=== PATIENT | female | born 1935 | race Caucasian/White ===

== ENCOUNTER 2016-11-22 11:37 | Emergency (ER) | payer MEDICARE, MEDICAID ==
[~2016-11-22] VITALS: Ht 185.4 cm; Wt 70.8 kg
[~2016-11-22 11:37] MED LIST: CLOB15CR5 TOP; DILT120T2 PO; DOCU-170 PO; DONE10TA44 PO; ESCI5TAB PO; FURO-144 PO; LACT1CAP72 PO; LORA0.5T PO; MAGN400O4 PO; MULT-659 PO; OLAN2.5T3 PO; OMEP20CA10 PO; POTA-10 PO; RIVA10TA PO; [UNRECOGNIZED DRUG - CODE] PO
--- NOTE | 2016-11-22 11:52 | NUR ---
PTREC'D TO ER VIA EMS C/O SOB HX COPD AND A FIB. O2 SATS RA 98% , N/C 2L 99% ALERT X3 . IV LEFT HAND 22G .IV STARTED 18G IVP RT AC LABS DRAWN SENT TO LAB .
[2016-11-22] MEDS ORDERED: IPRATROPIUM NEB FS 0.5 MG/2.5 ML AMPUL.NEB NEB ONE (12:00)
[2016-11-22] MEDS ORDERED: ALBUTEROL FS 2.5 MG/3 ML VIAL.NEB CONTNEB ONE (12:00)
[2016-11-22 12:05] LABS: BASOPHILS # (AUTO) 0.1 /CMM (0.0-0.2); BASOPHILS % (AUTO) 1.2 % (0.0-2.0); EOSINOPHILS # (AUTO) 0.1 /CMM (0.0-0.7); EOSINOPHILS % (AUTO) 1.3 % (0.0-6.0); HEMATOCRIT 44 % (33-45); HEMOGLOBIN 14.2 g/dL (11.5-14.8); LYMPHOCYTES # (AUTO) 1.2 /CMM (0.8-4.8); LYMPHOCYTES % (AUTO) 24.9 % (20.0-44.0); MEAN CORPUSCULAR HEMOGLOBIN 27 PG (26.0-33.0); MEAN CORPUSCULAR HGB CONC 33 g/dl (31.0-36.0); MEAN CORPUSCULAR VOLUME 84 fL (82-100); MONOCYTES # (AUTO) 0.4 /CMM (0.1-1.30); MONOCYTES % (AUTO) 8.3 % (2.0-12.0); NEUTROPHILS % (AUTO) 64.3 % (43.0-81.0); PLATELET COUNT (AUTO) 212 /CMM (150-450); RDW COEFFICIENT OF VARIATION 13.3 (11.5-15.0); RED BLOOD CELL COUNT(AUTO) 5.19 MIL/uL (4.0-5.2); WHITE BLOOD COUNT (AUTO) 4.8 K/uL (4.3-11.0)
--- NOTE | 2016-11-22 12:12 | NUR ---
URINE SAMPLE SENT TO LAB
--- NOTE | 2016-11-22 12:12 | NUR ---
paged rt for breathing tx
[2016-11-22 12:14] LABS: CALCIUM, SERUM 9.3 mg/dL (8.5-10.1); CARBON DIOXIDE 32 mmol/L (21-32); CHLORIDE 101 mmol/L (98-107); CREATININE 0.8 mg/dL (0.6-1.3); GLUCOSE 90 mg/dL (74-106); POTASSIUM 3.6 mmol/L (3.5-5.1); SODIUM SERUM 143 mmol/L (136-145); UREA NITROGEN, BLOOD 12 mg/dL (7-18)
[2016-11-22] MEDS ORDERED: ALBUTEROL FS 2.5 MG/3 ML VIAL.NEB ONE ×2 (12:14→13:32)
[2016-11-22] MEDS ORDERED: IPRATROPIUM NEB FS 0.5 MG/2.5 ML AMPUL.NEB ONE (12:15)
[2016-11-22 12:21] LABS: TROPONIN I < 0.017 ng/mL (0.00-0.056)
[2016-11-22 12:31] LABS: B-TYPE NATRIURETIC PEPTIDE 461 PG/ML (0-125)
[2016-11-22] MEDS ORDERED: DEXAMETHASONE SOD PHOSPHATE 10 MG/ML VIAL ONE (13:24)
[2016-11-22] MEDS ORDERED: DEXAMETHASONE SOD PHOSPHATE 10 MG/ML VIAL IV ONE (13:30)
[2016-11-22] MEDS ORDERED: ALBUTEROL FS 2.5 MG/3 ML VIAL.NEB NEB ONE (13:30)
--- NOTE | 2016-11-22 14:02 | NUR ---
CALLED [facility] FOR PT PICKUP ETA 20 - 30 MINS
[2016-11-22 14:03] VITALS: BP 109/55
--- NOTE | 2016-11-22 14:24 | NUR ---
PATIENT WAS PICKED UP BY FIELD NATURALIST, VSS.
== END 2016-11-22 14:24 | disposition home or self-care (01) ==
LOC: ER 11:39
DX: J44.1 Chronic obstructive pulmonary disease with (acute) exacerbation (principal); R06.02 Shortness of breath; I10 Essential (primary) hypertension; I48.91 Unspecified atrial fibrillation; K21.9 Gastro-esophageal reflux disease without esophagitis; Z99.81 Dependence on supplemental oxygen; Z87.891 Personal history of nicotine dependence
CPT/HCPCS: 36415; 71010-TC; 80048-TC; 83880; 84484-TC; 85025-TC; A4606; J1100; Z7610

== ENCOUNTER 2017-04-01 06:12 | Inpatient (IN) | payer MEDICARE, MEDICAID ==
[~2017-04-01] VITALS: Ht 170.2 cm; Wt 71.7 kg
--- NOTE | 2017-04-01 06:22 | NUR ---
PT PARK FROM FROM [facility]. PT C/O "SOB X1 WEEK"; WHEEZING. DENIES CP. PT AOX3 MILD LABORED BREATHING NOTED. NO NVD AT THIS TIME. PT GOWNED AND PLACED ON MONITOR. PT WAITING FOR MD HAMM.
[2017-04-01] MEDS ORDERED: IPRATROPIUM NEB FS 0.5 MG/2.5 ML AMPUL.NEB ONE ×2 (06:27→06:35)
[2017-04-01] MEDS ORDERED: methylPREDNISolone SOD SUCC 125 MG/2ML VIAL IV ONE (06:30)
[2017-04-01] MEDS ORDERED: IPRATROPIUM NEB FS 0.5 MG/2.5 ML AMPUL.NEB NEB ONE (06:30)
[2017-04-01] MEDS ORDERED: ALBUTEROL FS 2.5 MG/3 ML VIAL.NEB NEB ONE (06:30)
--- NOTE | 2017-04-01 06:30 | NUR ---
RT AT BEDSIDE FOR BREATHING TX
[2017-04-01] MEDS ORDERED: ALBUTEROL FS 2.5 MG/3 ML VIAL.NEB ONE (06:31)
[2017-04-01] MEDS ORDERED: methylPREDNISolone SOD SUCC 125 MG/2ML VIAL ONE (06:38)
[2017-04-01 07:01] LABS: BASOPHILS % (AUTO) 0.9 % (0.0-2.0); EOSINOPHILS # (AUTO) 0.1 /CMM (0.0-0.7); EOSINOPHILS % (AUTO) 2.1 % (0.0-6.0); HEMATOCRIT 43 % (33-45); LYMPHOCYTES # (AUTO) 1.5 /CMM (0.8-4.8); LYMPHOCYTES % (AUTO) 30.1 % (20.0-44.0); MEAN CORPUSCULAR HEMOGLOBIN 28 PG (26.0-33.0); MEAN CORPUSCULAR HGB CONC 33 g/dl (31.0-36.0); MEAN CORPUSCULAR VOLUME 86 fL (82-100); MONOCYTES # (AUTO) 0.5 /CMM (0.1-1.30); MONOCYTES % (AUTO) 10.5 % (2.0-12.0); NEUTROPHILS # (AUTO) 2.8 /CMM (1.8-8.9); NEUTROPHILS % (AUTO) 56.4 % (43.0-81.0); PLATELET COUNT (AUTO) 214 /CMM (150-450); RDW COEFFICIENT OF VARIATION 13.9 (11.5-15.0); RED BLOOD CELL COUNT(AUTO) 4.99 MIL/uL (4.0-5.2)
--- NOTE | 2017-04-01 07:09 | NUR ---
REPORT GIVEN TO JENNIFER ROTHMAN FOR DIANA.
--- NOTE | 2017-04-01 07:10 | NUR ---
RECEIVED REPORT FOR PATIENT, REMAINS STABLE. WILL CONTINUE TO MONITOR.
[2017-04-01 07:13] LABS: CALCIUM, SERUM 9.4 mg/dL (8.5-10.1); CARBON DIOXIDE 33 mmol/L (21-32); CHLORIDE 105 mmol/L (98-107); CREATININE 0.7 mg/dL (0.6-1.3); GLUCOSE 92 mg/dL (74-106); POTASSIUM 3.8 mmol/L (3.5-5.1); SODIUM SERUM 142 mmol/L (136-145); UREA NITROGEN, BLOOD 15 mg/dL (7-18)
[2017-04-01 07:18] LABS: TROPONIN I < 0.017 ng/mL (0.00-0.056)
[2017-04-01 07:26] LABS: ALANINE AMINOTRANSFERASE 11 U/L (12-78); ALBUMIN 3.7 g/dL (3.4-5.0); ALKALINE PHOSPHATASE 81 U/L (46-116); ASPARTATE AMINOTRANSFERASE 12 U/L (15-37); B-TYPE NATRIURETIC PEPTIDE 420 PG/ML (0-125); BILIRUBIN,DIRECT 0.1 mg/dL (0.0-0.2); BILIRUBIN,TOTAL 0.7 mg/dL (0.2-1.0); TOTAL PROTEIN, SERUM 7.4 g/dL (6.4-8.2)
[2017-04-01] MEDS ORDERED: ALBU18HF2 IH (07:50)
[2017-04-01] MEDS ORDERED: FLUT1BLS IH (07:50)
[2017-04-01] MEDS ORDERED: MIRT7.5T10 PO (07:50)
[2017-04-01] MEDS ORDERED: TIOT18CA3 IH (07:50)
--- NOTE | 2017-04-01 08:09 | NUR ---
325-1 Addendum: 04/01/17 at 0815 by RBATACLAN [id number]
--- NOTE | 2017-04-01 08:16 | NUR ---
REPORT GIVEN TO RNLUISANA FOR ADMISSION.
--- NOTE | 2017-04-01 08:54 | NUR ---
PATIENT TRANSPORTED TO [facility] VIA ACLS PROTOCOL FOR ADMISSION. RNERICKSON/LUISANA TO PROVIDE DIANA.
[2017-04-01 09:00] VITALS: BP 149/89
[2017-04-01 09:30] VITALS: BP 149/89
[2017-04-01] MEDS ORDERED: ACETAMINOPHEN 325 MG TABLET PO PRN (09:30)
[2017-04-01] MEDS ORDERED: LORAZEPAM 0.5 MG TABLET PO PRN (09:30)
[2017-04-01] MEDS ORDERED: ALBUTEROL FS 2.5 MG/3 ML VIAL.NEB NEB PRN (09:30)
[2017-04-01] MEDS ORDERED: ZOLPIDEM TARTRATE 5 MG TABLET PO PRN (09:30)
[2017-04-01] MEDS ORDERED: Z GUARD REMEDY 2 OZ OINT TP PRN (09:30)
[2017-04-01] MEDS ORDERED: MAG HYDROX/AL HYDROX/SIMETH 30 ML UDC PO PRN (09:30)
[2017-04-01] MEDS ORDERED: ONDANSETRON HCL/PF 4 MG/2 ML VIAL IVP PRN (09:30)
[2017-04-01] MEDS ORDERED: MAGNESIUM HYDROXIDE 30 ML UDC PO PRN ×2 (09:30)
--- NOTE | 2017-04-01 10:00 | NUR ---
SENIOR TAX ANALYST OPENING NOTES PT WAS TRANSFERRED FROM EMERGENCY ROOM. PATIENT IS ALERT AND ORIENTED. PATIENT IS IN NO APPARENT DISTRESS. PERIPHERAL IV IS INTACT AND PATENT. BEDSIDE RAILS ARE UP X2. BED IS LOCKED AND LOWERED. WILL CONTINUE TO MONITOR.
[2017-04-01] MEDS: IV NS 0.9% 1,000 ML IV PRN (11:49)
[2017-04-01] MEDS: DILTIAZEM HCL 30 MG TABLET PO SCH ×2 (11:49→21:53)
[2017-04-01] MEDS: DOCUSATE SODIUM 100 MG CAPSULE PO SCH ×2 (11:50→17:27)
[2017-04-01 12:00] VITALS: BP 132/72
[2017-04-01] MEDS: IPRATROPIUM NEB FS 0.5 MG/2.5 ML AMPUL.NEB NEB SCH ×2 (12:44→19:47)
[2017-04-01] MEDS: OLANZAPINE 2.5 MG TABLET PO SCH ×2 (13:02→17:27)
[2017-04-01] MEDS: methylPREDNISolone SOD SUCC 40 MG/ML VIAL IV SCH ×2 (13:02→17:27)
[2017-04-01 16:00] VITALS: BP 131/68
[2017-04-01] MEDS: RIVAROXABAN 10 MG TABLET PO SCH (17:34)
[2017-04-01 17:36] LABS: ABG BASE EXCESS 2.5 mmol/L; ABG OXYGEN SATURATION 92.9 % (92.0-98.5); ABG PCO2 39.5 mmHg (35.0-45.0); ABG PH 7.446 (7.350-7.450); ABG PO2 64.6 mmHg (75.0-100.0); AaDO2 37.8 mmHg; COHb 0.7 % (0.5-1.5); MetHb 0.4 % (0.0-1.5); O2Hb 91.9 % (94.0-97.0); SITE, ABG Right Radial; VENT MODE, BG ROOM AIR
--- NOTE | 2017-04-01 18:00 | NUR ---
RESPIRATORY THERAPIST DAVIS CALLED POST ARTERIAL PUNCTURE RESULT FOR BLOOD GAS REPORTING THE RESULT IS NORMAL
--- NOTE | 2017-04-01 18:52 | NUR ---
CLINICAL APPLICATION CONSULTANT CLOSING NOTES PT IS RESTING IN BED IN NO APPARENT DISTRESS. BED IS LOCKED AND LOWERED. BEDSIDE RAILS ARE UP X2. WILL ENDORSE CARE TO U.S. REPRESENTATIVE NURSE FOR DIANA.
--- NOTE | 2017-04-01 19:00 | NUR ---
SOCIAL GROUP WORKER OPENING NOTES PATIENT RESTING IN BED A/O X 2, NO ACUTE DISTRESS NOTED. BREATHING EVEN AND UNLABORED, NO SOB NOTED. SAFETY MEASURES IN PLACE, BED LOCKED AND IN LOWEST POSITION, CALL LIGHT IN REACH. WILL CONTINUE TO MONITOR.
[2017-04-01 19:34] VITALS: BP 123/68
[2017-04-01 20:00] VITALS: BP 123/68
[2017-04-01] MEDS: MIRTAZAPINE 15 MG TABLET PO SCH (21:49)
[2017-04-01] MEDS: GUAIFENESIN 300 MG/15 ML UDC PO SCH (21:49)
[2017-04-02] VITALS: BP 126/76
[2017-04-02 06:54] LABS: BASOPHILS % (AUTO) 0.1 % (0.0-2.0); EOSINOPHILS % (AUTO) 0.1 % (0.0-6.0); HEMATOCRIT 42 % (33-45); HEMOGLOBIN 13.8 g/dL (11.5-14.8); LYMPHOCYTES # (AUTO) 0.8 /CMM (0.8-4.8); LYMPHOCYTES % (AUTO) 8.4 % (20.0-44.0); MEAN CORPUSCULAR HEMOGLOBIN 28 PG (26.0-33.0); MEAN CORPUSCULAR HGB CONC 33 g/dl (31.0-36.0); MEAN CORPUSCULAR VOLUME 86 fL (82-100); MONOCYTES # (AUTO) 0.3 /CMM (0.1-1.30); MONOCYTES % (AUTO) 2.9 % (2.0-12.0); NEUTROPHILS # (AUTO) 8.6 /CMM (1.8-8.9); NEUTROPHILS % (AUTO) 88.5 % (43.0-81.0); PLATELET COUNT (AUTO) 213 /CMM (150-450); RDW COEFFICIENT OF VARIATION 13.8 (11.5-15.0); RED BLOOD CELL COUNT(AUTO) 4.96 MIL/uL (4.0-5.2); WHITE BLOOD COUNT (AUTO) 9.8 K/uL (4.3-11.0)
[2017-04-02 08:00] VITALS: BP 143/81
[2017-04-02] MEDS ORDERED: TIOTROPIUM BROMIDE 6 CAP/BOX CAP.W.DEV IH SCH (09:00)
--- NOTE | 2017-04-02 09:35 | NUR ---
RN OPENING NOTES RECEIVED PATIENT RESTING COMFORTABLE IN BED. AOX2. PT DENIES SOB AND CP. NO COMPLAINTS OF PAIN. PATIENT SATURATING AT 97% ON O2 @2LPM. RESPIRATIONS EVEN AND UNLABORED. NO ACUTE DISTRESS NOTED. PATIENT VERBALIZING HER DEPRESSION. IV ACCESS ON THE LAC 20 G WITH NS RUNNING @75 ML/HR. BED LOCKED IN THE LOWEST POSITION WITH SIDE RAILS UP X2. CALL LIGHT WITHIN REACH. WILL CONTINUE TO MONITOR, ASSESS AND EDUCATE PATIENT THROUGHOUT SHIFT.
[2017-04-02] MEDS: IPRATROPIUM NEB FS 0.5 MG/2.5 ML AMPUL.NEB NEB SCH ×3 (09:38→21:52)
[2017-04-02] MEDS: OLANZAPINE 2.5 MG TABLET PO SCH ×3 (09:54→17:40)
[2017-04-02] MEDS: FUROSEMIDE 40 MG TABLET PO SCH (09:54)
[2017-04-02] MEDS: DOCUSATE SODIUM 100 MG CAPSULE PO SCH ×2 (09:54→17:34)
[2017-04-02] MEDS: ESCITALOPRAM OXALATE (10 MG) 10 MG TABLET PO SCH (09:54)
[2017-04-02] MEDS: DILTIAZEM HCL 30 MG TABLET PO SCH ×2 (09:54→21:24)
[2017-04-02] MEDS: GUAIFENESIN 300 MG/15 ML UDC PO SCH ×2 (09:55→21:25)
[2017-04-02] MEDS: methylPREDNISolone SOD SUCC 40 MG/ML VIAL IV SCH ×3 (10:01→17:42)
[2017-04-02 10:34] LABS: CHOLESTEROL 177 mg/dL (<200); HDL CHOLESTEROL 67 mg/dL (40-60); LDL 105 mg/dL (0-99); TRIGLYCERIDES 20 mg/dL (30-150)
[2017-04-02 10:35] LABS: CALCIUM, SERUM 9.4 mg/dL (8.5-10.1); CARBON DIOXIDE 30 mmol/L (21-32); CHLORIDE 103 mmol/L (98-107); CREATININE 0.7 mg/dL (0.6-1.3); GLUCOSE 136 mg/dL (74-106); MAGNESIUM 1.9 mg/dL (1.8-2.4); PHOSPHORUS 3.1 mg/dL (2.5-4.9); POTASSIUM 3.8 mmol/L (3.5-5.1); SODIUM SERUM 141 mmol/L (136-145); UREA NITROGEN, BLOOD 17 mg/dL (7-18)
[2017-04-02] MEDS: FLUTICASONE/VILANTEROL 1 EACH BLST.W.DEV IH SCH (11:57)
[2017-04-02 12:00] VITALS: BP 138/95
--- NOTE | 2017-04-02 13:23 | NUR ---
RN NOTES PATIENT ACCIDENTLY DISLODGED LAC IV ACCESS. NEW IV PLACED ON THE RAC 20 G. ON ATTEMPT. PATIENT TOLERATED WELL. PATENT AND INTACT. NO S/S OF INFILTRATION. NS RUNNING AT 75ML/HR. WILL CONTINUE TO MONITOR.
[2017-04-02 16:00] VITALS: BP 126/84
[2017-04-02] MEDS: RIVAROXABAN 10 MG TABLET PO SCH (17:37)
--- NOTE | 2017-04-02 19:25 | NUR ---
MS/RN NOTES RECEIVED PT. LYING IN BED. AWAKE, ALERT AND ORIENTED X2. BREATHING EVEN AND UNLABORED ON ROOM AIR. NO SOB, RESPIRATORY DISTRESS OR COMPLAINTS OF PAIN NOTED AT THIS TIME. NO COMPLAINTS OF CHEST PAIN NOTED AT THIS TIME. PT. WITH RIGHT AC 20 GAUGE PERIPHERAL IV PRESENT, PATENT AND INTACT ADMINISTERING TO PT. NS @ 75 ML/HR. BED LOCKED AND IN LOWEST POSITION, SIDE RAILS UP X3, BED ALARM ON, CALL LIGHT WITHIN REACH, WILL CONTINUE TO MONITOR.
--- NOTE | 2017-04-02 19:35 | NUR ---
RN CLOSING NOTES PATIENT RESTING COMFORTABLY IN BED. DENIES SOB NO COMPLAINTS OF PAIN. NO CP. NO ACUTE DISTRESS. RESPIRATIONS EVEN AND UNLABORED. ALL NEEDS MET. ALL MEDS GIVEN APPROPRIATE. WILL ENDORSE TO NIGHT RN FOR DIANA.
[2017-04-02 20:00] VITALS: BP 147/84
[2017-04-02] MEDS: MIRTAZAPINE 15 MG TABLET PO SCH (21:25)
[2017-04-03] MEDS: IPRATROPIUM NEB FS 0.5 MG/2.5 ML AMPUL.NEB NEB SCH ×4 (02:50→20:40)
--- NOTE | 2017-04-03 06:19 | NUR ---
MS/RN NOTES PT. IS LYING IN BED. AWAKE, ALERT AND ORIENTED X2. BREATHING EVEN AND UNLABORED ON ROOM AIR. NO SOB, RESPIRATORY DISTRESS OR COMPLAINTS OF PAIN NOTED AT THIS TIME AND THROUGHOUT SHIFT. NO COMPLAINTS OF CHEST PAIN NOTED AT THIS TIME AND THROUGHOUT SHIFT. PT. WITH RIGHT AC 20 GAUGE PERIPHERAL IV PRESENT, PATENT AND INTACT ADMINISTERING TO PT. NS @ 75 ML/HR. ALL PT. NEEDS MET. ALL DUE MEDICATIONS GIVEN. PT. ENCOURAGED AND ASSISTED TO TURN AND REPOSITION Q2H AND NEEDED. BED LOCKED AND IN LOWEST POSITION, SIDE RAILS UP X3, BED ALARM ON, CALL LIGHT WITHIN REACH, WILL ENDORSE TO DAYSHIFT NURSE FOR CONTINUITY OF CARE.
--- NOTE | 2017-04-03 07:23 | NUR ---
RN OPENING NOTES RECEIVED PATIENT RESTING COMFORTABLE IN BED WITH EYES CLOSED. AOX1-2. PT DENIES SOB AND CP. NO COMPLAINTS OF PAIN. PATIENT SATURATING ADEQUATELY ON O2 @2LPM. RESPIRATIONS EVEN AND UNLABORED. NO ACUTE DISTRESS NOTED. IV ACCESS ON THE RAC 20 G WITH NS RUNNING @75 ML/HR. BED LOCKED IN THE LOWEST POSITION WITH SIDE RAILS UP X2. CALL LIGHT WITHIN REACH. WILL CONTINUE TO MONITOR, ASSESS AND EDUCATE PATIENT THROUGHOUT SHIFT.
[2017-04-03 08:00] VITALS: BP 156/105
[2017-04-03] MEDS: DOCUSATE SODIUM 100 MG CAPSULE PO SCH ×2 (08:47→16:54)
[2017-04-03] MEDS: FUROSEMIDE 40 MG TABLET PO SCH (08:47)
[2017-04-03] MEDS: ESCITALOPRAM OXALATE (10 MG) 10 MG TABLET PO SCH (08:48)
[2017-04-03] MEDS: OLANZAPINE 2.5 MG TABLET PO SCH ×3 (08:48→16:55)
[2017-04-03] MEDS: methylPREDNISolone SOD SUCC 40 MG/ML VIAL IV SCH ×3 (08:48→16:54)
[2017-04-03] MEDS: GUAIFENESIN 300 MG/15 ML UDC PO SCH ×2 (08:48→20:53)
[2017-04-03] MEDS: DILTIAZEM HCL 30 MG TABLET PO SCH ×2 (08:49→20:53)
[2017-04-03] MEDS: FLUTICASONE/VILANTEROL 1 EACH BLST.W.DEV IH SCH (09:10)
--- NOTE | 2017-04-03 09:32 | NUR ---
RN NOTES PATIENT DISLODGED IV ACCESS ON THE RIGHT AC. NEW IV PLACED IN THE RIGHT FOREARM 22G. PATENT AND INTACT. NO S/S OF INFILTRATION. ONE ATTEMPT. PATIENT TOLERATED WELL. NS RUNNING AT 75 ML/HR. WILL CONTINUE TO MONITOR.
--- NOTE | 2017-04-03 10:54 | NUR ---
RN NOTES PATIENT COMPLAINING OF SEVERE BURNING WHEN URINATING. WILL NOTIFY DR. CEE. WILL CONTINUE TO MONITOR.
--- NOTE | 2017-04-03 11:00 | NUR ---
RN NOTES DR. CEE NOTIFIED OF THE PATIENTS CONDITION. ORDERS GIVEN FOR URINE CULTURE AND URINALYSIS. WILL CARRY OUT ORDERS.
[2017-04-03] MEDS: HYDROCODONE/APAP 5/325MG 1 EACH TABLET PO PRN ×2 (11:09→20:53)
--- NOTE | 2017-04-03 11:34 | NUR ---
RN NOTES URINE COLLECTED AND SENT TO LAB.
[2017-04-03 12:06] LABS: APPEARANCE,URINE CLEAR (CLEAR); BILIRUBIN,URINE NEGATIVE (NEGATIVE); BLOOD, URINE 2+ Ery/uL (NEGATIVE); COLOR,URINE YELLOW (YELLOW); KETONES,URINE NEGATIVE (NEGATIVE); LEUKOCYTE ESTERASE ,URINE 2+ (NEGATIVE); NITRITE, URINE NEGATIVE (NEGATIVE); PROTEIN,URINE NEGATIVE (NEGATIVE); UGLUCOSE NEGATIVE (NEGATIVE); UROBILINOGEN,URINE 0.2 EU/dL (0.2)
[2017-04-03 12:11] LABS: BACTERIA,URINE Moderate /HPF (None Seen); SQUAMOUS EPITHELIAL CELL,UR Few /HPF (None Seen)
[2017-04-03] MEDS: IV NS 0.9% 1,000 ML IV PRN ×2 (13:56→23:34)
--- NOTE | 2017-04-03 15:05 | NUR ---
RN NOTES UA RESULT REPORTED TO DR. CEE. ORDERS GIVEN TO START [id number] 1G IV Q24H. ORDERS TO BE CARRIED OUT GIVEN.
[2017-04-03 16:00] VITALS: BP 124/82
[2017-04-03] MEDS: CEFTRIAXONE 1 G in IV D5W 50 ML IV SCH (16:54)
[2017-04-03] MEDS: RIVAROXABAN 10 MG TABLET PO SCH (16:56)
--- NOTE | 2017-04-03 18:21 | NUR ---
RN CLOSING NOTES PATIENT RESTING COMFORTABLY IN BED. DENIES SOB, NO COMPLAINTS OF PAIN. NO CP. NO ACUTE DISTRESS. RESPIRATIONS EVEN AND UNLABORED. NS RUNNING AT 75MLS/HR IN THE RIGHT FOREARM. IV 22G PATENT AND INTACT. ALL NEEDS MET. ALL MEDS GIVEN APPROPRIATE. WILL ENDORSE TO NIGHT RN FOR DAINA.
--- NOTE | 2017-04-03 19:13 | NUR ---
MS RN OPENING NOTES PATIENT RESTING IN BED A/O X 1, NO ACUTE DISTRESS NOTED. BREATHING EVEN AND UNLABORED, NO SOB NOTED. SAFETY MEASURES IN PLACE, BED LOCKED AND IN LOWEST POSITION, CALL LIGHT IN REACH. WILL CONTINUE TO MONITOR.
[2017-04-03 20:00] VITALS: BP 136/83
[2017-04-03] MEDS: MIRTAZAPINE 15 MG TABLET PO SCH (21:00)
--- NOTE | 2017-04-03 21:40 | NUR ---
MS RN NOTES PATIENT WAS MOVED TO ROOM 309-1 SAFELY WITH NO INCIDENT
--- NOTE | 2017-04-03 23:43 | NUR ---
MS RN NOTES PT IV TO THE RAC 20 WAS INFILTRATED CHANGED TO L WRIST 22 G TOLERATED PROCEDURE WELL WITH GOOD BLOOD RETURN
[2017-04-04] MEDS: IPRATROPIUM NEB FS 0.5 MG/2.5 ML AMPUL.NEB NEB SCH ×4 (01:50→19:31)
--- NOTE | 2017-04-04 06:26 | NUR ---
MS RN CLOSING NOTES PATIENT COMFORTABLY ASLEEP AND EASILY AWAKEN, HEAD OF BED ELEVATED FOR BETTER LUNG EXPANSION, TOLERATING NOW ROOM AIR 02 SAT AT 97% IV HYDRATION NS ONGOING AT 75 CC, IV SITE NO S/S OF INFILTRATED PATENT AND FLUSHED, PATIENT DENIES PAIN AT THIS TIME. 0/10 RESPIRATIONS EVEN AND UNLABORED., NO S/S OF ACUTE DISTRESS, NO SOB, NO COUGH, NO CONGESTION, SKIN WARM AND DRY TO TOUCH, AFEBRILE, ALL NURSING CARE RENDERED, NEEDS ATTENDED AND ANTICIPATED, KEPT CLEAN AND DRY AND COMFORTABLE, GOOD SKIN ARE PROVIDED. ALL DUE MEDS WAS GIVEN FREQUENT VISUAL CHECK DONE FOR SAFETY EVERY 2 HOURS. SAFE HAZARD FREE ENVIRONMENT PROVIDED. CALL LIGHT WITHIN EASY TO REACH, ON LOW BED AT ALL TIMES TO ENSURE SAFETY, WILL ENDORSE TO THE NEXT SHIFT CONTINUE PLAN OF CARE.
--- NOTE | 2017-04-04 07:05 | NUR ---
RN NOTES PT IS IN BED, RESTING COMFORTABLY WITH SITTER AT BEDSIDE. PT ON 2L O2 VIA NASAL CANNULA, RESPIRATIONS ARE EVEN AND UNLABORED. PT DENIES ANY PAIN AT THIS TIME. SAFETY MEASURES ARE IN PLACE, CALL LIGHT IS IN REACH. WILL CONTINUE TO MONITOR.
[2017-04-04 08:00] VITALS: BP 132/79
[2017-04-04] MEDS: methylPREDNISolone SOD SUCC 40 MG/ML VIAL IV SCH ×3 (08:15→16:34)
[2017-04-04] MEDS: ESCITALOPRAM OXALATE (10 MG) 10 MG TABLET PO SCH (08:16)
[2017-04-04] MEDS: DILTIAZEM HCL 30 MG TABLET PO SCH ×2 (08:16→21:07)
[2017-04-04] MEDS: GUAIFENESIN 300 MG/15 ML UDC PO SCH ×2 (08:16→21:09)
[2017-04-04] MEDS: FLUTICASONE/VILANTEROL 1 EACH BLST.W.DEV IH SCH (08:16)
[2017-04-04] MEDS: OLANZAPINE 2.5 MG TABLET PO SCH ×3 (08:17→16:35)
[2017-04-04] MEDS: FUROSEMIDE 40 MG TABLET PO SCH (08:17)
[2017-04-04] MEDS: DOCUSATE SODIUM 100 MG CAPSULE PO SCH ×2 (08:17→16:35)
[2017-04-04] MEDS ORDERED: CEFTRIAXONE 1 G VIAL IM SCH (12:00)
[2017-04-04] MEDS ORDERED: CEFTRIAXONE 1 G in IV D5W 50 ML IV SCH (12:00)
[2017-04-04] MEDS: CEFTRIAXONE 1 G in IV D5W 50 ML IV SCH (15:04)
[2017-04-04 16:00] VITALS: BP 147/79
[2017-04-04] MEDS: RIVAROXABAN 10 MG TABLET PO SCH (16:35)
--- NOTE | 2017-04-04 18:29 | NUR ---
RN NOTES PT IS IN BED, RESTING COMFORTABLY WITH SITTER AT BEDSIDE. PT ON 2L O2 VIA NASAL CANNULA, RESPIRATIONS ARE EVEN AND UNLABORED. IV ON L WRIST INTACT AND PATENT, RUNNING NS @75ML/HR. PT IS CLEAN AND SKIN CARE PROVIDED. ALL MEDS WERE GIVEN ORDERED. WILL ENDORSE TO TEARER RN FOR CONTINUITY OF CARE.
--- NOTE | 2017-04-04 19:32 | NUR ---
RN NOTES PATIENT ALERT AND ORIENTED X2. SITTER PRESENT AT BEDSIDE. VS STABLE. NO SOB. RESPIRATIONS ARE EVEN AND UNLABORED. NO C/O PAIN AT THIS TIME. IV ON L WRIST INTACT AND PATENT. INFUSING NS @75ML/HR. BED IN LOW POSITION. SIDE RAILSX2. CALL LIGHT WITHIN EASY REACH. CONTINUE TO MONITOR.
[2017-04-04 20:00] VITALS: BP 158/97
[2017-04-04] MEDS: MIRTAZAPINE 15 MG TABLET PO SCH (21:07)
--- NOTE | 2017-04-04 22:45 | NUR ---
RN NOTES TALKED TO DR NAJERA. NOTIFIED HIM PATIENT ON LASIX AND HAS COPD EXACERBATION. MD ORDERED DISCONTINUE OF IV FLUIDS.
[2017-04-05] MEDS: IPRATROPIUM NEB FS 0.5 MG/2.5 ML AMPUL.NEB NEB SCH ×4 (01:49→20:03)
--- NOTE | 2017-04-05 06:57 | NUR ---
RN CLOSING NOTES PATIENT SLEEPING IN BED. SITTER PRESENT AT BEDSIDE. VS STABLE. NO SOB. RESPIRATIONS ARE EVEN AND UNLABORED. IV ON L WRIST INTACT AND PATENT. NO REDNESS OR INFILTRATION NOTED. ALL MEDICATIONS GIVEN PER MD ORDER. BED IN LOW POSITION. SIDE RAILSX2. CALL LIGHT WITHIN EASY REACH. WILL ENDORSE TO RN DAY SHIFT FOR CONTINUITY OF CARE.
--- NOTE | 2017-04-05 07:10 | NUR ---
MS RN NOTES RECEIVED PATIENT IN BED, AWAKE. A/O X2. ON 2LPM VIA NC, NO SOB. IV IN LEFT WRIST G22, PATENT AND INTACT, FLUSHES WELL. APPEARS COMFORTABLE IN BED, NO C/O ANY DISCOMFORT. REORIENT, CALL LIGHT WITHIN REACH. 1:1 SITTER AT THE BEDSIDE. WILL CONT TO MONITOR.
[2017-04-05 08:00] VITALS: BP 158/102
[2017-04-05] MEDS ORDERED: PRED20TA PO (08:29)
[2017-04-05] MEDS ORDERED: CEFT1VIA15 IV (08:29)
--- NOTE | 2017-04-05 08:29 | NUR ---
PATIENT TO BE DISCHARGED ORDERED.
[2017-04-05] MEDS: DOCUSATE SODIUM 100 MG CAPSULE PO SCH ×2 (09:04→17:11)
[2017-04-05] MEDS: FUROSEMIDE 40 MG TABLET PO SCH (09:04)
[2017-04-05] MEDS: OLANZAPINE 2.5 MG TABLET PO SCH ×3 (09:04→17:14)
[2017-04-05] MEDS: ESCITALOPRAM OXALATE (10 MG) 10 MG TABLET PO SCH (09:04)
[2017-04-05] MEDS: GUAIFENESIN 300 MG/15 ML UDC PO SCH ×2 (09:04→22:06)
[2017-04-05] MEDS: methylPREDNISolone SOD SUCC 40 MG/ML VIAL IV SCH ×3 (09:04→17:08)
[2017-04-05] MEDS: DILTIAZEM HCL 30 MG TABLET PO SCH ×2 (09:05→22:07)
[2017-04-05] MEDS: FLUTICASONE/VILANTEROL 1 EACH BLST.W.DEV IH SCH (09:06)
[2017-04-05] MEDS: CEFTRIAXONE 1 G in IV D5W 50 ML IV SCH (15:37)
[2017-04-05 16:00] VITALS: BP_SYST 130; BP_SYST 134; BP_DIAS 78
[2017-04-05] MEDS: RIVAROXABAN 10 MG TABLET PO SCH (17:13)
--- NOTE | 2017-04-05 18:39 | NUR ---
MS RN CLOSING NOTES PATIENT IN BED, A/O X2. BREATHING EVEN AND NON LABORED. IV IN RIGHT WRIST G22 PATENT AND INTACT, FLUSHES WELL. ON ANTIBIOTIC WITH NO ADVERSE SIDE EFFECT, AFEBRILE. SEEN BY PT TODAY, AMBULATE WITH ASSIST/WALKER PER PT. WALK 30 FEET, TOLERATED WELL. PATIENT TO BE DISCHARGED TO SNF, AWAITING FOR PLACEMENT, CM IS AWARE. WILL ENDORSE TO ENGINEERING TEST SPECIALIST RN FOR DIANA.
--- NOTE | 2017-04-05 19:30 | NUR ---
MS/RN NOTES RECEIVED PT. LYING IN BED RESTING. PT. IS EASILY AROUSABLE TO NAME. AWAKE, ALERT AND ORIENTED X2. BREATHING EVEN AND UNLABORED ON 2LPM O2 VIA NC. NO SOB, RESPIRATORY DISTRESS OR COMPLAINTS OF PAIN NOTED AT THIS TIME. PT. WITH RIGHT WRIST 22 GAUGE IV SALINE LOCK PRESENT, PATENT AND INTACT. PER DAYSHIFT NURSE THERE IS D/C ORDER AND PT. IS AWAITING PLACEMENT PT. WILL NEED IV ANTIBIOTICS. BED LOCKED AND IN LOWEST POSITION, SIDE RAILS UP X3, CALL LIGHT WITHIN REACH, WILL CONTINUE TO MONITOR.
[2017-04-05 20:00] VITALS: BP 139/84
[2017-04-05 21:00] VITALS: BP 144/90
[2017-04-05] MEDS: MIRTAZAPINE 15 MG TABLET PO SCH (22:07)
[2017-04-06] MEDS: IPRATROPIUM NEB FS 0.5 MG/2.5 ML AMPUL.NEB NEB SCH ×3 (01:38→13:49)
--- NOTE | 2017-04-06 06:31 | NUR ---
MS/RN NOTES PT. IS LYING IN BED RESTING.BREATHING EVEN AND UNLABORED ON 2LPM O2 VIA NC. NO SOB, RESPIRATORY DISTRESS OR COMPLAINTS OF PAIN NOTED AT THIS TIME AND THROUGHOUT SHIFT. PT. WITH RIGHT WRIST 22 GAUGE IV SALINE LOCK PRESENT, PATENT AND INTACT. ALL PT. NEEDS MET. PT. IS PENDING DISCHARGE AWAITING PLACEMENT. BED LOCKED AND IN LOWEST POSITION, SIDE RAILS UP X3, CALL LIGHT WITHIN REACH, WILL ENDORSE TO DAYSHIFT NURSE FOR CONTINUITY OF CARE.
--- NOTE | 2017-04-06 07:30 | NUR ---
RN OPENING NOTES RECEIVED PT. WITH 1:1 SITTER, A&OX2, CONFUSED. BREATHING UNLABORED ON ROOM AIR. NO S/S OF ACUTE DISTRESS. IV ACCESS IS INTACT AND PATENT WITH SALINE FLUSH. BED IS IN LOWEST, LOCKED POSITION, 2 SIDE RAILS UP, AND CALL LIGHT WITHIN REACH. WILL CONTINUE TO ASSESS AND MONITOR.
[2017-04-06 08:23] VITALS: BP 149/99
[2017-04-06] MEDS: OLANZAPINE 2.5 MG TABLET PO SCH ×3 (08:45→17:16)
[2017-04-06] MEDS: FUROSEMIDE 40 MG TABLET PO SCH (08:45)
[2017-04-06] MEDS: DOCUSATE SODIUM 100 MG CAPSULE PO SCH ×2 (08:45→17:16)
[2017-04-06] MEDS: FLUTICASONE/VILANTEROL 1 EACH BLST.W.DEV IH SCH (08:45)
[2017-04-06] MEDS: methylPREDNISolone SOD SUCC 40 MG/ML VIAL IV SCH ×3 (08:46→17:31)
[2017-04-06] MEDS: ESCITALOPRAM OXALATE (10 MG) 10 MG TABLET PO SCH (08:48)
[2017-04-06 08:49] VITALS: BP 149/99
[2017-04-06] MEDS: DILTIAZEM HCL 30 MG TABLET PO SCH (08:49)
[2017-04-06] MEDS: GUAIFENESIN 300 MG/15 ML UDC PO SCH (08:50)
--- NOTE | 2017-04-06 13:00 | NUR ---
JENNIFER KIM OPENING NOTES PROVIDED REPORT TO JENNIFER MENDOZA FROM [facility]. ALL QUESTIONS ANSWERED. Addendum: 04/06/17 at 1855 by WILIAN TAVERA RN JENNIFER CHOW
[2017-04-06] MEDS: CEFTRIAXONE 1 G in IV D5W 50 ML IV SCH (16:39)
[2017-04-06] MEDS: RIVAROXABAN 10 MG TABLET PO SCH (17:17)
--- NOTE | 2017-04-06 17:30 | NUR ---
IRB COMPLIANCE COORDINATOR NOTES PT. LEFT TO [facility] IN MEDICALLY STABLE CONDITION. ID BAND, AND IV WAS REMOVED WITHOUT COMPLICATIONS. PT. WAS TAKEN TO SNF BY AMBULANCE. DISCHARGE PACKET WAS GIVEN TO AMBULANCE. PT. LEFT WITH BELONGINGS, AND FWW WALKER.
== END 2017-04-06 18:00 | DRG 133 ==
LOC: ER 06:14 → TELE 08:29 → MED 04-02 15:24
PROVIDERS: ADMIT Internal Medicine; ATTEND Internal Medicine
DX: J96.21 Acute and chronic respiratory failure with hypoxia (principal); G93.1 Anoxic brain damage, not elsewhere classified; D68.59 Other primary thrombophilia; J44.1 Chronic obstructive pulmonary disease with (acute) exacerbation; I48.0 Paroxysmal atrial fibrillation; F03.90 Unspecified dementia, unspecified severity, without behavioral disturbance, psychotic disturbance, mood disturbance, and anxiety; G40.909 Epilepsy, unspecified, not intractable, without status epilepticus; I50.9 Heart failure, unspecified; I11.0 Hypertensive heart disease with heart failure; N39.0 Urinary tract infection, site not specified; F32.9 Major depressive disorder, single episode, unspecified; B96.20 Unspecified Escherichia coli [E. coli] as the cause of diseases classified elsewhere; E78.5 Hyperlipidemia, unspecified; F41.9 Anxiety disorder, unspecified; I25.10 Atherosclerotic heart disease of native coronary artery without angina pectoris; G89.29 Other chronic pain; K21.9 Gastro-esophageal reflux disease without esophagitis; Z86.73 Personal history of transient ischemic attack (TIA), and cerebral infarction without residual deficits; Z87.891 Personal history of nicotine dependence; D64.9 Anemia, unspecified; K57.90 Diverticulosis of intestine, part unspecified, without perforation or abscess without bleeding; M19.90 Unspecified osteoarthritis, unspecified site; Z79.01 Long term (current) use of anticoagulants; F25.9 Schizoaffective disorder, unspecified; J40 Bronchitis, not specified as acute or chronic
CPT/HCPCS: 36415; 36600; 71010-TC; 80048-TC; 80061-TC; 80076-TC; 81000-TC; 82803-TC; 83735-TC; 83880; 84100-TC; 84484-TC; 85025-TC; 87081-TC; 87086-TC; 87186-TC; 97116-TC; 97530-TC; A4606; J0696; J2920; J2930; J7030; J7050; J7060; Z7610